=== PATIENT | male | born 1970 | race Caucasian/White ===

== ENCOUNTER 2018-09-12 18:05 | Emergency (ER) | payer OTHER ==
[~2018-09-12] VITALS: Ht 170.2 cm; Wt 122.0 kg
[2018-09-12 18:08] VITALS: Ht 170.2 cm; Wt 122.0 kg
[2018-09-12] MEDS ORDERED: OXYC-431 PO (19:07)
[2018-09-12] MEDS ORDERED: TRAZ-111 PO (19:08)
[2018-09-12] MEDS ORDERED: CRES5 PO (19:08)
[2018-09-12] MEDS ORDERED: FENO160T13 PO (19:08)
[2018-09-12] MEDS ORDERED: MELO15TA30 PO (19:10)
[2018-09-12] MEDS ORDERED: OMEP20CA16 PO (19:10)
[2018-09-12] MEDS ORDERED: LISI1TAB8 PO (19:11)
[2018-09-12] MEDS ORDERED: HYDROmorphONE 1 MG/ML SYG IV STA (20:05)
[2018-09-12] MEDS ORDERED: SOD CHLORIDE 0.9% 1,000 ML IV STA (20:05)
[2018-09-12] MEDS ORDERED: ONDANSETRON 4 MG INJ IV STA (20:05)
--- NOTE | 2018-09-12 21:33 | ERD ---
ER Documentation Chief Complaint Chief Complaint chest pain rash on legs bodyache HPI This is a 48-year-old male with a history of chronic back pain who presents with abdominal pain, which is epigastric, nausea and vomiting, he states that he feels chest discomfort, which has been secondary to the vomiting, also endorses generalized body aches. He takes Percocet for his chronic back pain, there are no alleviating or aggravating factors. Symptoms have been ongoing for the last day. ROS All systems reviewed and are negative except as per history of present illness. Medications Home Meds Active Scripts Sennosides* (Senna Lax*) 8.6 Mg Tablet, 1 TAB PO BID for 30 Days, TAB Prov:MAY PAREDES MD 09/12/18 Ondansetron (Ondansetron Odt) 8 Mg Tab.rapdis, 8 MG PO Q6H PRN for NAUSEA AND/OR VOMITING, #14 TAB Prov:MAY PAREDES MD 09/12/18 Reported Medications Lisinopril/Hydrochlorothiazide (Lisinopril-Hctz 20-25 mg Tab) 1 Each Tablet, 0.5 EACH PO DAILY, TAB 09/12/18 Omeprazole* (Omeprazole*) 20 Mg Capsule.dr, 20 MG PO BID, #60 CAP 09/12/18 Meloxicam* (Mobic*) 15 Mg Tablet, 15 MG PO DAILY PRN for NEEDED, #30 TAB 09/12/18 Trazodone Hcl* (Trazodone Hcl*) 50 Mg Tablet, 50 MG PO QHS, #30 TAB 09/12/18 Rosuvastatin Calcium* (Crestor*) 5 Mg Tablet, 5 MG PO QHS, #30 TAB 09/12/18 Fenofibrate, Micronized* (Fenofibrate*) 160 Mg Tablet, 160 MG PO DAILY, TAB 09/12/18 Oxycodone HCl/Acetaminophen (Oxycodone-Acetaminophen 10-325) 1 Each Tablet, 1 EACH PO TID, TAB 09/12/18 Allergies Allergies: Coded Allergies: No Known Allergy (Unverified , 09/12/18) PMhx/Soc History of Surgery: No Anesthesia Reaction: No Hx Neurological Disorder: No Hx Respiratory Disorders: No Hx Cardiac Disorders: Yes (HTN, HIGH CHOLESTEROL) Hx Psychiatric Problems: No Hx Miscellaneous Medical Probl: No Hx Alcohol Use: Yes (TWICE/MONTH) Hx Substance Use: No Hx Tobacco Use: No Smoking Status: Never smoker FmHx Family History: No diabetes Physical Exam Vitals Vital Signs Date Temp Pulse Resp B/P (MAP) Pulse Ox O2 O2 Flow FiO2 Time Delivery Rate 09/12/18 98.2 100 20 155/92 98 Room Air 22:00 (113) 09/12/18 98.5 107 20 161/90 98 Room Air 19:00 (113) 09/12/18 98.9 123 20 163/88 98 18:08 (113) Physical Exam Const: Mild distress Head: Atraumatic Eyes: Normal Conjunctiva ENT: Normal External Ears, Nose and Mouth. Neck: Full range of motion. No meningismus. Resp: Clear to auscultation bilaterally Cardio: Regular rate and rhythm, no murmurs Abd: Soft, mild epigastric tenderness, non distended. Normal bowel sounds Skin: No petechiae or rashes Back: No midline or flank tenderness Ext: No cyanosis, or edema Neur: Awake and alert Psych: Normal Mood and Affect Result Diagram: 09/12/186 09/12/181825 Results 24 hrs Laboratory Tests Test 09/12/18 18:26 09/12/18 19:10 White Blood Count 8.9 10^3/ul Red Blood Count 3.81 10^6/ul Hemoglobin 11.6 g/dl Hematocrit 34.9 % Mean Corpuscular Volume 91.6 fl Mean Corpuscular Hemoglobin 30.4 pg Mean Corpuscular Hemoglobin Concent 33.2 g/dl Red Cell Distribution Width 14.4 % Platelet Count 164 10^3/UL Mean Platelet Volume 10.2 fl Immature Granulocytes % 0.200 % Neutrophils % 81.0 % Lymphocytes % 7.8 % Monocytes % 8.9 % Eosinophils % 1.8 % Basophils % 0.3 % Nucleated Red Blood Cells % 0.0 /100WBC Immature Granulocytes # 0.020 10^3/ul Neutrophils # 7.2 10^3/ul Lymphocytes # 0.7 10^3/ul Monocytes # 0.8 10^3/ul Eosinophils # 0.2 10^3/ul Basophils # 0.0 10^3/ul Nucleated Red Blood Cells # 0.0 10^3/ul Prothrombin Time 12.2 Sec Prothrombin Time Ratio 1.0 INR International Normalized Ratio 0.89 Sodium Level 136 mmol/L Potassium Level 3.4 mmol/L Chloride Level 96 mmol/L Carbon Dioxide Level 26 mmol/L Anion Gap 14 Blood Urea Nitrogen 10 mg/dl Creatinine 0.60 mg/dl Est Glomerular Filtrat Rate mL/min > 60 mL/min Glucose Level 149 mg/dl Calcium Level 9.4 mg/dl Total Bilirubin 0.3 mg/dl Direct Bilirubin 0.00 mg/dl Indirect Bilirubin 0.3 mg/dl Aspartate Amino Transf (AST/SGOT) 119 IU/L Alanine Aminotransferase (ALT/SGPT) 63 IU/L Alkaline Phosphatase 63 IU/L Troponin I 0.013 ng/ml Total Protein 8.3 g/dl Albumin 4.5 g/dl Globulin 3.80 g/dl Albumin/Globulin Ratio 1.18 Lipase 23 U/L Urine Color YELLOW Urine Clarity CLEAR Urine pH 7.0 Urine Specific Winfred 1.014 Urine Ketones TRACE mg/dL Urine Nitrite NEGATIVE mg/dL Urine Bilirubin NEGATIVE mg/dL Urine Urobilinogen NEGATIVE mg/dL Urine Leukocyte Esterase NEGATIVE Sammy/ul Urine Hemoglobin NEGATIVE mg/dL Urine Glucose NEGATIVE mg/dL Urine Total Protein NEGATIVE mg/dl Current Medications Medications Dose Sig/Radha Start Time Status Last (Trade) Ordered Route PRN Stop Time Admin Dose Reason Admin Sodium 1,000 ml @ Q1H STAT 09/12/18 DC 09/12/18 Chloride 1,000 mls/hr IV 20:05 09/12/18 20:11 21:04 1 mg ONCE STAT 09/12/18 DC 09/12/18 Hydromorphone IV 20:05 09/12/18 20:12 HCl 20:06 (Dilaudid) Ondansetron 4 mg ONCE STAT 09/12/18 DC 09/12/18 HCl (Zofran IV 20:05 09/12/18 20:11 Inj) 20:06 Procedures/MDM This is a pleasant 48-year-old male who presents for abdominal pain associated with vomiting. His chest pain appears to have been secondary to multiple episodes of emesis, his EKG showed no evidence of acute ischemia and troponin was negative, I do not suspect cardiac cause for his symptoms.Labs were unremarkable. CT did show an ileus with no evidence of obstruction, given that he is on chronic pain medications, I suspect that this may be a contributing factor, I discussed with the patient and offered him admission for monitoring of improvement in the symptoms, he stated that he would prefer to go home and manage symptoms at home, I did encourage a bowel regimen, as well as provide prescription for antiemetics, return precautions given for any worsening symptoms. At discharge the patient was in no acute distress. EKG: Rate/Rhythm: Normal Sinus Rhythm QRS, ST, T-waves: Incomplete right bundle branch block no changes consistent w/ acute ischemia Impression: No evidence of ischemia or arrhythmia Departure Diagnosis: Primary Impression: Vomiting Vomiting type: unspecified Vomiting Intractability: non-intractable Nausea presence: with nausea Qualified Codes: R11.2 - Nausea with vomiting, unspecified Additional Impressions: Abdominal pain Abdominal location: unspecified location Qualified Codes: R10.9 - Unspecified abdominal pain Body aches Chest pain Chest pain type: unspecified Qualified Codes: R07.9 - Chest pain, unspecified Headache Headache type: unspecified Headache chronicity pattern: acute headache Intractability: not intractable Qualified Codes: R51 - Headache Condition: Stable MAY PAREDES MD Sep 12, 2018 21:33
[2018-09-12] MEDS ORDERED: SENN-120 PO (21:37)
[2018-09-12] MEDS ORDERED: ONDA8TAB14 PO (21:37)
[2018-09-12 22:00] VITALS: BP 155/92; PULSE 100; RESP 20
== END 2018-09-12 22:20 | disposition home or self-care (01) ==
LOC: E/R 18:05
DX: R11.2 Nausea with vomiting, unspecified (principal); R10.9 Unspecified abdominal pain; R51 Headache; I10 Essential (primary) hypertension
CPT/HCPCS: 71045; 74176; 80053; 81003; 83690; 84484; 85025; 85610; 87400; J1170; J2405; J7030; 93005; 96374; 96375